=== PATIENT | female | born 1965 | race Caucasian/White ===

== ENCOUNTER 2018-03-14 10:57 | Emergency (ER) | payer OTHER ==
[2018-03-14 11:15] VITALS: BP 155/94; PULSE 82; TEMP 98.6; BMI 28.3
[2018-03-14] MEDS ORDERED: ERYTHROMYCIN 0.5% OPHTHALMIC OINTMENT 3.5 GM TUBE OU ONE (12:02)
--- NOTE | 2018-03-14 12:04 | PDOC ---
History of Present Illness - General Chief Complaint: Blood/Body Fluid Exposure SJR Stated Complaint: Blood/Body Fluid Exposure SJR Time Seen by Provider: 03/14/18 11:24 Past History - Past Medical History Allergies/Adverse Reactions: Allergies Allergy/AdvReac Type Severity Reaction Status Date / Time doxycycline calcium Allergy Rash Verified 03/14/18 11:11 [From Vibramycin] doxycycline hyclate Allergy Rash Verified 03/14/18 11:11 [From Vibramycin] doxycycline monohydrate Allergy Rash Verified 03/14/18 11:11 [From Vibramycin] Penicillins Allergy Rash Verified 03/14/18 11:11 tetracycline [Tetracycline] Allergy Rash Verified 03/14/18 11:11 Home Medications: Ambulatory Orders No Home Medications 0 dose .ROUTE UTDICT 10/01/13 COPD: No Thyroid Disease: Yes - Suicide/Smoking/Psychosocial Hx Smoking History: Current every day smoker Number of Cigarettes Smoked Daily: 5 Information on smoking cessation initiated: No Hx Alcohol Use: Yes (SOCIAL) Substance Use Type: None *Physical Exam - Vital Signs Last Vital Signs Temp Pulse Resp BP Pulse Ox 98.6 F 82 18 155/94 99 03/14/18 11:08 03/14/18 11:08 03/14/18 11:08 03/14/18 11:08 03/14/18 11:08 *DC/Admit/Observation/Transfer Diagnosis at time of Disposition: Employee exposure to body fluids - Discharge Dispostion Disposition: HOME Condition at time of disposition: Stable Decision to Admit order: No - Referrals Referrals: Joseph Davidson MD [Primary Care Provider] - - Patient Instructions Printed Discharge Instructions: How to Handle Body Fluid Exposure -- Healthcare Worker Additional Instructions: You've flushed out her eyes today after exposure to feces. You may continue to flush them out if they continue to bother you. You may use the erythromycin ointment if you have any pain or burning. There are no antibiotics needed for this potential MRSA exposure at this time. Follow-up with employee health as needed. Return to emergency department if you have eye infection, visual changes, or if you have any changes in your symptoms.
[2018-03-14] MEDS ORDERED: ERYTHROMYCIN 0.5% OPHTHALMIC OINTMENT 3.5 GM TUBE ONE (12:07)
== END 2018-03-14 12:10 | disposition home or self-care (01) ==
LOC: JERFT 10:57
DX: Z77.21 Contact with and (suspected) exposure to potentially hazardous body fluids (principal); X58.XXXA Exposure to other specified factors, initial encounter; Y93.F9 Activity, other caregiving; Y92.230 Patient room in hospital as the place of occurrence of the external cause; Y99.0 Civilian activity done for income or pay
CPT/HCPCS: 99281-25

== ENCOUNTER 2018-03-17 17:18 | Emergency (ER) | payer OTHER ==
--- NOTE | 2018-03-17 17:22 | PDOC ---
Rapid Medical Evaluation Time Seen by Provider: 03/17/18 17:19 Medical Evaluation: Allergies Allergy/AdvReac Type Severity Reaction Status Date / Time doxycycline calcium Allergy Rash Verified 03/14/18 11:11 [From Vibramycin] doxycycline hyclate Allergy Rash Verified 03/14/18 11:11 [From Vibramycin] doxycycline monohydrate Allergy Rash Verified 03/14/18 11:11 [From Vibramycin] Penicillins Allergy Rash Verified 03/14/18 11:11 tetracycline [Tetracycline] Allergy Rash Verified 03/14/18 11:11 03/17/18 17:20 I have performed a brief in-person evaluation of this patient. The patient presents with a chief complaint of:L hip/neck/L shoulder pain s/p trip and fall [place] on [address] pt works as a nurse Pertinent physical exam findings:+ttp to L hip with no deformity, able to bear weight, No cpine ttp and L shoulder without swelling w/ FROMI I have ordered the following:nothing The patient will proceed to the ED for further evaluation. Discharge Disposition - Diagnosis Fall Qualifiers: Encounter type: initial encounter Qualified Code(s): W19.XXXA - Unspecified fall, initial encounter - Referrals - Patient Instructions - Post Discharge Activity
[2018-03-17 17:31] VITALS: BP 147/84; PULSE 87; TEMP 98.4; BMI 28.3
[2018-03-17] MEDS ORDERED: KETOROLAC TROMETHAMINE 60 MG/2 ML VIAL IM ONE (17:47)
[2018-03-17] MEDS ORDERED: KETOROLAC TROMETHAMINE 60 MG/2 ML VIAL ONE (17:52)
--- NOTE | 2018-03-17 17:53 | PDOC ---
History of Present Illness - General Chief Complaint: Injury Stated Complaint: FALL INJURY Time Seen by Provider: 03/17/18 17:19 History Source: Patient Exam Limitations: No Limitations - History of Present Illness Initial Comments: 03/17/18 17:48 Best Contact: PCP:Dr. Davidson Pmhx: Hypothyroidism Pshx: Nerve impingement/[id number] nerve monitor/at 19 years old: Lap appendectomy Allergies:-Mycin, penicillin, tetracycline/rash FH: NA Social Hx: Ciarettes/ 0 Alcohol/ 0 Drugs/0 LMP:N/A 52-year-old female presents to the ER complaining of left-sided hip/shoulder discomfort status post fall. 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 Patient states she will spit up immediately without any difficulties. Patient denies head injuries, LOC, headache, dizziness , lightheadedness, neck, back pains, chest pain, shortness of breath, abdominal pains, bladder or bowel dysfunction, urinary symptoms. Patient declined any images. Past History - Past Medical History Allergies/Adverse Reactions: Allergies Allergy/AdvReac Type Severity Reaction Status Date / Time doxycycline calcium Allergy Rash Verified 03/17/18 17:32 [From Vibramycin] doxycycline hyclate Allergy Rash Verified 03/17/18 17:32 [From Vibramycin] doxycycline monohydrate Allergy Rash Verified 03/17/18 17:32 [From Vibramycin] Penicillins Allergy Rash Verified 03/17/18 17:32 tetracycline [Tetracycline] Allergy Rash Verified 03/17/18 17:32 Home Medications: Ambulatory Orders No Home Medications 0 dose .ROUTE UTDICT 10/01/13 Levothyroxine [Synthroid -] 75 mcg PO DAILY 03/17/18 COPD: No DVT: No Thyroid Disease: Yes - Suicide/Smoking/Psychosocial Hx Smoking History: Current some day smoker Have you smoked in the past 12 months: No Number of Cigarettes Smoked Daily: 5 Information on smoking cessation initiated: No Hx Alcohol Use: No Drug/Substance Use Hx: No Substance Use Type: None Review of Systems - Review of Systems Able to Perform ROS?: Yes Comments:: 03/17/18 17:51 CONSTITUTIONAL: Absent: fever, chills, diaphoresis, generalized weakness, malaise, loss of appetite HEENT: Absent: rhinorrhea, nasal congestion, throat pain, throat swelling, difficulty swallowing, mouth swelling, ear pain, eye pain, visual Changes CARDIOVASCULAR: Absent: chest pain, loss of consciousness, palpitations, irregular heart rate, peripheral edema RESPIRATORY: Absent: cough, shortness of breath, dyspnea with exertion, orthopnea, wheezing, stridor, hemoptysis GASTROINTESTINAL: Absent: abdominal pain, abdominal distension, nausea, vomiting, diarrhea, constipation, melena, hematochezia GENITOURINARY: Absent: dysuria, frequency, urgency, hesitancy, hematuria, flank pain, genital pain MUSCULOSKELETAL: +left shoulder pain/Left hip pain Absent: myalgia, arthralgia, joint swelling SKIN: Absent: rash, itching, pallor HEMATOLOGIC/IMMUNOLOGIC: Absent: easy bleeding, easy bruising, lymphadenopathy, frequent infections ENDOCRINE: Absent: unexplained weight gain, unexplained weight loss, heat intolerance, cold intolerance NEUROLOGIC: Absent: headache, focal weakness or paresthesias, dizziness, unsteady gait, seizure, mental status changes, bladder or bowel incontinence PSYCHIATRIC: Absent: anxiety, depression, suicidal or homicidal ideation, hallucinations. Is the patient limited Somali proficient: No *Physical Exam - Vital Signs Last Vital Signs Temp Pulse Resp BP Pulse Ox 98.4 F 87 16 147/84 100 03/17/18 17:27 03/17/18 17:27 03/17/18 17:27 03/17/18 17:27 03/17/18 17:27 - Physical Exam Comments: 03/17/18 17:51 GENERAL: Well developed, well nourished. Awake and alert. No acute distress. HEENT: Normocephalic, atraumatic. PERRLA, EOMI. No conjunctival pallor. Sclera are non- icteric. Moist mucous membranes. Oropharynx is clear. NECK: Supple. Full ROM. No JVD. Carotid pulses 2+ and symmetric, without bruits. No thyromegaly. No lymphadenopathy. CARDIOVASCULAR: Regular rate and rhythm. No murmurs, rubs, or gallops. Distal pulses are 2+ and symmetric. PULMONARY: No evidence of respiratory distress. Lungs clear to auscultation bilaterally. No wheezing, rales or rhonchi. ABDOMINAL: Soft. Non-tender. Non-distended. No rebound or guarding. No organomegaly. Normoactive bowel sounds. MUSCULOSKELETAL Left shoulder: No obvious deformity Full range of motion Negative pain on palpation Left hip Full range of motion Negative pain on palpation Left sided paravertebral pain on palpation Neg SLR Normal range of motion at all joints. No bony deformities or tenderness. No CVA tenderness. EXTREMITIES: No cyanosis. No clubbing. No edema. No calf tenderness. SKIN: Warm and dry. Normal capillary refill. No rashes. No jaundice. NEUROLOGICAL: Alert, awake, appropriate. Cranial nerves 2-12 intact. No deficits to light touch and temperature in face, upper extremities and lower extremities. No motor deficits in the in face, upper extremities and lower extremities. Normoreflexic in the upper and lower extremities. Normal speech. Toes are down- going bilaterally. Gait is normal without ataxia. PSYCHIATRIC: Cooperative. Good eye contact. Appropriate mood and affect. *DC/Admit/Observation/Transfer Diagnosis at time of Disposition: Fall Qualifiers: Encounter type: initial encounter Qualified Code(s): W19.XXXA - Unspecified fall, initial encounter Acute left-sided low back pain Qualifiers: Sciatica presence: without sciatica Qualified Code(s): M54.5 - Low back pain Contusion Qualifiers: Encounter type: initial encounter Contusion area: hip Laterality: left Qualified Code(s): S70.02XA - Contusion of left hip, initial encounter - Discharge Dispostion Disposition: HOME Condition at time of disposition: Stable Decision to Admit order: No - Referrals Referrals: Joseph Davidson MD [Primary Care Provider] - Mark Gordon MD [Staff Physician] - - Patient Instructions Printed Discharge Instructions: DI for Contusion, DI for Low Back Pain Additional Instructions: Ice; 20 mins on alternating with 20 mins off for 48 hours while awake. Rest Elevate Follow up with your orthopedic surgeon or the one listed on the discharge form. Return to the ER for severe/persistent/worsening symptoms, extremity numbness/ tingling sensation. - Post Discharge Activity Forms/Work/School Notes: Back to Work
== END 2018-03-17 18:09 | disposition home or self-care (01) ==
LOC: JER 17:18 → JERFT 17:18
PROC: 3E0233Z Introduction of Anti-inflammatory into Muscle, Percutaneous Approach (ICD-10-PCS; principal; 2018-03-17)
DX: M54.5 Low back pain (principal); S70.02XA Contusion of left hip, initial encounter; W18.39XA Other fall on same level, initial encounter; Y93.89 Activity, other specified; Y92.9 Unspecified place or not applicable; F17.210 Nicotine dependence, cigarettes, uncomplicated; E07.9 Disorder of thyroid, unspecified
CPT/HCPCS: 99281-25